=== PATIENT | female | born 1980 | race Caucasian/White ===

== ENCOUNTER 2023-04-23 12:49 | Outpatient (CLI) | payer BC | END 2023-04-23 12:50 | disposition home or self-care (01) | LOC: CSHMRI 12:49 | PROVIDERS: ATTEND Family Medicine | DX: M67.912 Unspecified disorder of synovium and tendon, left shoulder (principal); M75.112 Incomplete rotator cuff tear or rupture of left shoulder, not specified as traumatic; R93.7 Abnormal findings on diagnostic imaging of other parts of musculoskeletal system ==

== ENCOUNTER 2024-03-29 10:30 | Outpatient (CLI) | payer BC | END 2024-03-29 10:31 | disposition home or self-care (01) | LOC: CSHMRI 10:30 | PROVIDERS: ATTEND Psychiatry & Neurology Neurology | DX: M54.50 Low back pain, unspecified (principal); G89.29 Other chronic pain; M47.816 Spondylosis without myelopathy or radiculopathy, lumbar region; I86.8 Varicose veins of other specified sites | CPT/HCPCS: 72148; 72195 ==

== ENCOUNTER 2025-06-17 14:55 | Outpatient (CLI) | payer BC | END 2025-06-17 14:56 | disposition home or self-care (01) | LOC: CSHMRI 14:55 | PROVIDERS: ATTEND Family Medicine | DX: M51.34 Other intervertebral disc degeneration, thoracic region (principal); D75.9 Disease of blood and blood-forming organs, unspecified; R20.2 Paresthesia of skin; M47.814 Spondylosis without myelopathy or radiculopathy, thoracic region | CPT/HCPCS: 72070; 72146 ==